=== PATIENT | male | born 1965 | race African-American/Black ===

== ENCOUNTER 2017-10-10 04:37 | Inpatient (IN) | payer MEDICAID ==
[~2017-10-10] VITALS: Ht 180.3 cm; Wt 86.2 kg
[2017-10-10] VITALS (11 sets, daily range): BP systolic 113–140; BP diastolic 64–92
[~2017-10-10 04:37] MED LIST: DEPAKOTE500 MG PO; DILANTIN100 MG ORAL; DILANTIN30 MG ORAL; KEPPRA500 MG ORAL; PHENOBARBITAL60 MG ORAL; PHENYTOIN100 MG/4 M ORAL; Phenobarbital ORAL; VIMPAT100 MG ORAL
[2017-10-10] MEDS ORDERED: Sodium Chloride 500ML 500 ML IV ONE (04:54)
[2017-10-10] MEDS ORDERED: LORazepam Inj 2mg/ml 1ml ONE (04:54)
[2017-10-10] MEDS ORDERED: LORazepam Inj 2mg/ml 1ml IM ONE ×2 (05:00→06:00)
--- NOTE | 2017-10-10 05:11 | Emergency Room Report ---
History of Present Illness General Chief Complaint: Seizure Source: Patient, Significant Other, EMS (Sluaiman Ramos MD) Present Illness HPI 51-year-old male presents ED status post seizure. Occurred at home. Witnessed by significant other. No head trauma. History of seizurestakes Ru Raymond Depakote. Significant other states that patient does drink. States he is otherwise compliant with his medications. No drug use. Patient is currently post ictal. Unable to provide any additional history at this time. No other aggravating relieving factors. No other associated symptoms (Sulaiman Ramos MD) Allergies: Coded Allergies: NO KNOWN ALLERGIES (Unverified Allergy, Unknown, 02/14/15) Patient History Past Medical History: seizures Past Surgical History: none Pertinent Family History: none Social History: Reports: alcohol use; Denies: smoking, drug use Immunizations: UTD Reviewed Nursing Documentation: PMH: Agreed; PSxH: Agreed (Sulaiman Ramos MD) Nursing Documentation-PMH Past Medical History: No History, Except For Hx Cardiac Problems: No Hx Hypertension: No Hx Pacemaker: No Hx Asthma: No Hx COPD: No Hx Diabetes: No Hx Cancer: No Hx Gastrointestinal Problems: No Hx Dialysis: No Hx Neurological Problems: Yes Hx Cerebrovascular Accident: No Hx Seizures: Yes Hx Syncope: Yes (Sulaiman Ramos MD) Review of Systems All Other Systems: negative except mentioned in HPI (Sulaiman Ramos MD) Physical Exam Vital Signs Date Time Temp Pulse Resp B/P (MAP) Pulse Ox O2 Delivery O2 Flow Rate FiO2 10/10/17 04:30 98.6 80 18 158/74 98 Room Air 98.6 Sp02 EP Interpretation: reviewed, normal General Appearance: no apparent distress, Postictal Head: normocephalic Eyes: bilateral eye normal inspection, bilateral eye PERRL ENT: normal ENT inspection Neck: normal inspection Respiratory: chest non-tender, lungs clear, normal breath sounds, speaking full sentences Cardiovascular #1: regular rate, rhythm, no edema Gastrointestinal: normal inspection Rectal: deferred Genitourinary: no CVA tenderness Musculoskeletal: normal inspection Neurologic: regional driver III-XII nml as tested, motor strength/tone normal, other - postictal Psychiatric: other - postictal Skin: normal inspection Lymphatic: normal inspection (Sulaiman Ramos MD) Medical Decision Making Diagnostic Impression: Primary Impression: Seizure disorder ER Course This patient had been seen by Dr. Ramos. Please see his full history and physical. Basically, the patient has a history of epilepsy and seizure disorder. He has a history of status epilepticus. He presents with breakthrough seizures today with prolonged altered mental status and postictal state. Of note, he did get 4 mg of IM Ativan. Apparently he was very combative and aggressive after the seizure. Apparently this is standard for him. The patient had a prolonged stay in emergency department and continued to be sedated and altered. Therefore, I felt that this patient should be admitted for further monitoring and further evaluation until he clears his mental status. Laboratory Tests Test 10/10/17 06:50 White Blood Count 6.4 K/UL (4.8-10.8) Red Blood Count 5.08 M/UL (4.70-6.10) Hemoglobin 14.9 G/DL (14.2-18.0) Hematocrit 43.4 % (42.0-52.0) Mean Corpuscular Volume 85 FL (80-99) Mean Corpuscular Hemoglobin 29.4 PG (27.0-31.0) Mean Corpuscular Hemoglobin Concent 34.4 G/DL (32.0-36.0) Red Cell Distribution Width 11.2 % (11.6-14.8) L Platelet Count 111 K/UL (150-450) L Mean Platelet Volume 9.3 FL (6.5-10.1) Neutrophils (%) (Auto) 72.2 % (45.0-75.0) Lymphocytes (%) (Auto) 20.4 % (20.0-45.0) Monocytes (%) (Auto) 5.2 % (1.0-10.0) Eosinophils (%) (Auto) 0.5 % (0.0-3.0) Basophils (%) (Auto) 1.7 % (0.0-2.0) Sodium Level 133 MMOL/L (136-145) L Potassium Level 3.8 MMOL/L (3.5-5.1) Chloride Level 98 MMOL/L (98-107) Carbon Dioxide Level 26 MMOL/L (21-32) Anion Gap 9 mmol/L (5-15) Blood Urea Nitrogen 6 mg/dL (7-18) L Creatinine 1.0 MG/DL (0.55-1.30) Estimate Glomerular Filtration Rate > 60 mL/min (>60) Glucose Level 97 MG/DL (74-106) Calcium Level 8.2 MG/DL (8.5-10.1) L Total Bilirubin 0.3 MG/DL (0.2-1.0) Aspartate Amino Transferase (AST) 36 U/L (15-37) Alanine Aminotransferase (ALT) 51 U/L (12-78) Alkaline Phosphatase 62 U/L (46-116) Total Protein 7.0 G/DL (6.4-8.2) Albumin 3.5 G/DL (3.4-5.0) Globulin 3.5 g/dL Albumin/Globulin Ratio 1.0 (1.0-2.7) Urine Opiates Screen Negative (NEGATIVE) Urine Barbiturates Screen Negative (NEGATIVE) Phenytoin (Dilantin) Level 12.7 ug/mL (10-20) Valproic Acid Level 58 MCG/ML (50-100) Phencyclidine (PCP) Screen Negative (NEGATIVE) Urine Amphetamines Screen Negative (NEGATIVE) Urine Benzodiazepines Screen Negative (NEGATIVE) Urine Cocaine Screen Negative (NEGATIVE) Urine Marijuana (THC) Screen Positive (NEGATIVE) H Serum Alcohol < 3 mg/dL (Kimmy Romero DO) Last Vital Signs Date Time Temp Pulse Resp B/P (MAP) Pulse Ox O2 Delivery O2 Flow Rate FiO2 10/10/17 04:30 98.6 80 18 158/74 98 Room Air 98.6 (Sulaiman Ramos MD) Referrals: NON PHYSICIAN (PCP) Sulaiman Ramos MD Oct 10, 2017 05:11 Kimmy Romero Livier CRUZ Oct 10, 2017 07:42
[2017-10-10] MEDS ORDERED: levETIRAcetam 500mg/NS100ml 100 ML IVPB ONE ×2 (06:30→10:32)
[2017-10-10 07:10] LABS: BASOPHILS % (AUTO) 1.7 % (0.0-2.0); EOSINOPHILS % (AUTO) 0.5 % (0.0-3.0); HEMATOCRIT 43.4 % (42.0-52.0); HEMOGLOBIN 14.9 G/DL (14.2-18.0); LYMPHOCYTES % (AUTO) 20.4 % (20.0-45.0); MEAN CORPUSCULAR VOLUME 85 FL (80-99); MONOCYTES % (AUTO) 5.2 % (1.0-10.0); NEUTROPHILS % (AUTO) 72.2 % (45.0-75.0); PLATELET COUNT 111 K/UL (150-450); RED BLOOD COUNT 5.08 M/UL (4.70-6.10); RED CELL DISTRIBUTION WIDTH 11.2 % (11.6-14.8); WHITE BLOOD COUNT 6.4 K/UL (4.8-10.8)
[2017-10-10 07:34] LABS: ANION GAP 9 mmol/L (5-15); BLOOD UREA NITROGEN 6 mg/dL (7-18); CALCIUM 8.2 MG/DL (8.5-10.1); CARBON DIOXIDE 26 MMOL/L (21-32); CHLORIDE 98 MMOL/L (98-107); POTASSIUM 3.8 MMOL/L (3.5-5.1); SODIUM 133 MMOL/L (136-145)
[2017-10-10 07:38] LABS: ALANINE AMINOTRANSFERASE 51 U/L (12-78); ALBUMIN 3.5 G/DL (3.4-5.0); ALKALINE PHOSPHATASE 62 U/L (46-116); ASPARTATE AMINO TRANSFERASE 36 U/L (15-37); BILIRUBIN,TOTAL 0.3 MG/DL (0.2-1.0)
[2017-10-10] MEDS ORDERED: Heparin 2000 units/Ns 1000ml INJ ONE (09:00)
[2017-10-10] MEDS ORDERED: Lidocaine 1% Plain 30 ml INJ ONE (09:00)
--- NOTE | 2017-10-10 10:29 | Pre-Procedure Note/Attestation ---
Pre-Procedure Note/Attestation Complete Prior to Procedure Planned Procedure: not applicable Procedure Narrative: PICC line Indications for Procedure Pre-Operative Diagnosis: need IV access Attestation Informed consent obtained prior to the procedure. This was confirmed prior to beginning the procedure. I attest that I re-evaluated the patient just prior to the surgery and that there has been no change in the patient's H&P, except as documented below: Ramirez Washington M.D. Oct 10, 2017 10:29
[2017-10-10] MEDS ORDERED: Sodium Chloride 500ML 550 ML ONE (10:33)
--- NOTE | 2017-10-10 10:36 | Diagnostic Imaging Report ---
Indications: Needs IV access Technique: Ultrasound confirms patent compressible brachial vein. Total sterile technique, including sterile probe cover and sterile gel, hat, mask,, sterile gown, large sterile drape, and preparation with 2% chlorhexidine utilized. Local anesthesia with 1% lidocaine. Under real-time ultrasound guidance, puncture the brachial vein using 21-gauge needle, documented and archived, passage 0.018 guidewire under direct fluoroscopy, which was used to determine appropriate catheter length, exchange for 5 [place] peel-away sheath. 5 [place] dual-lumen power PICC cut to 40 cm. It was inserted through the peel-away sheath. Peel-away sheath and guidewire removed. Catheter fixed to the skin. Both catheter ports aspirated and flushed. Patient tolerated procedure well, without immediate complication. Digital radiograph documents satisfactory catheter tip position, at the cavoatrial junction. Total fluoroscopy time 0.2 minutes. Total dose area product 17 dGycm2 Impression: Successful placement of 5 [place] double-lumen PICC under sonographic and fluoroscopic guidance, as described above.
[2017-10-10] MEDS ORDERED: Mylanta II UD 30ml ORAL PRN (12:00)
[2017-10-10] MEDS ORDERED: LORazepam Inj 2mg/ml 1ml IV PRN (12:00)
[2017-10-10] MEDS ORDERED: Morphine Sulfate 2mg/ml Inj IVP PRN (12:00)
[2017-10-10] MEDS ORDERED: Miralax 17gm pkt ORAL PRN (12:00)
--- NOTE | 2017-10-10 12:12 | Consultation ---
History of Present Illness General Chief Complaint: Seizure Present Illness Allergies: Coded Allergies: NO KNOWN ALLERGIES (Unverified Allergy, Unknown, 02/14/15) Medication History Scheduled Divalproex Sodium (Depakote), 500 MG PO BID, (Reported) Levetiracetam (Keppra), 1,500 MG ORAL BID, (Reported) Phenytoin (Phenytoin*), 100 MG ORAL EVERY 8 HOURS Patient History Healthcare decision maker Resuscitation status Advanced Directive on File Physical Exam Last 24 Hour Vital Signs Date Time Temp Pulse Resp B/P (MAP) Pulse Ox O2 Delivery O2 Flow Rate FiO2 10/10/17 11:24 64 15 113/70 99 Simple Mask 2.0 10/10/17 10:23 61 16 124/80 99 Simple Mask 2.0 10/10/17 08:30 64 15 140/74 99 Simple Mask 2.0 10/10/17 07:30 66 18 Simple Mask 2.0 10/10/17 07:30 66 18 123/72 99 Simple Mask 2.0 10/10/17 06:45 98.6 67 16 126/76 99 Room Air 98.6 10/10/17 05:45 98.6 68 16 125/76 98 Room Air 98.6 10/10/17 04:45 98.6 88 18 135/70 98 Room Air 98.6 10/10/17 04:45 88 18 Room Air 10/10/17 04:30 98.6 80 18 158/74 98 Room Air 98.6 Intake and Output 10/09/17 10/10/17 19:00 07:00 Output Total 100 ml Balance -100 ml Output Urine Total 100 ml Laboratory Tests Test 10/10/17 06:50 White Blood Count 6.4 K/UL (4.8-10.8) Red Blood Count 5.08 M/UL (4.70-6.10) Hemoglobin 14.9 G/DL (14.2-18.0) Hematocrit 43.4 % (42.0-52.0) Mean Corpuscular Volume 85 FL (80-99) Mean Corpuscular Hemoglobin 29.4 PG (27.0-31.0) Mean Corpuscular Hemoglobin Concent 34.4 G/DL (32.0-36.0) Red Cell Distribution Width 11.2 % (11.6-14.8) L Platelet Count 111 K/UL (150-450) L Mean Platelet Volume 9.3 FL (6.5-10.1) Neutrophils (%) (Auto) 72.2 % (45.0-75.0) Lymphocytes (%) (Auto) 20.4 % (20.0-45.0) Monocytes (%) (Auto) 5.2 % (1.0-10.0) Eosinophils (%) (Auto) 0.5 % (0.0-3.0) Basophils (%) (Auto) 1.7 % (0.0-2.0) Sodium Level 133 MMOL/L (136-145) L Potassium Level 3.8 MMOL/L (3.5-5.1) Chloride Level 98 MMOL/L (98-107) Carbon Dioxide Level 26 MMOL/L (21-32) Anion Gap 9 mmol/L (5-15) Blood Urea Nitrogen 6 mg/dL (7-18) L Creatinine 1.0 MG/DL (0.55-1.30) Estimat Glomerular Filtration Rate > 60 mL/min (>60) Glucose Level 97 MG/DL (74-106) Calcium Level 8.2 MG/DL (8.5-10.1) L Total Bilirubin 0.3 MG/DL (0.2-1.0) Aspartate Amino Transf (AST/SGOT) 36 U/L (15-37) Alanine Aminotransferase (ALT/SGPT) 51 U/L (12-78) Alkaline Phosphatase 62 U/L (46-116) Total Protein 7.0 G/DL (6.4-8.2) Albumin 3.5 G/DL (3.4-5.0) Globulin 3.5 g/dL Albumin/Globulin Ratio 1.0 (1.0-2.7) Urine Opiates Screen Negative (NEGATIVE) Urine Barbiturates Screen Negative (NEGATIVE) Phenytoin (Dilantin) Level 12.7 ug/mL (10-20) Valproic Acid (Depakene) Level 58 MCG/ML (50-100) Phencyclidine (PCP) Screen Negative (NEGATIVE) Urine Amphetamines Screen Negative (NEGATIVE) Urine Benzodiazepines Screen Negative (NEGATIVE) Urine Cocaine Screen Negative (NEGATIVE) Urine Marijuana (THC) Screen Positive (NEGATIVE) H Serum Alcohol < 3 mg/dL Height (Feet): 5 Height (Inches): 11.00 Weight (Pounds): 190 Medications Current Medications Medications (Trade) Dose Ordered Sig/Cristian Route PRN Reason Start Time Stop Time Status Last Admin Dose Admin Acetaminophen (Tylenol) 650 mg Q4H PRN ORAL fever 10/10/17 12:00 11/09/17 11:59 UNV Al Hydroxide/Mg Hydroxide (Mylanta II) 30 ml Q6H PRN ORAL dyspepsia 10/10/17 12:00 11/09/17 11:59 UNV Chlorhexidine Gluconate (Lizzy-Hex 2%) 1 applic DAILY@2000 TOPIC 10/10/17 20:00 11/09/17 19:59 Dextrose (Dextrose 50%) STAT PRN IV Hypoglycemia 10/10/17 12:00 11/09/17 11:59 UNV Divalproex Sodium (Depakote) 500 mg BID ORAL 10/10/17 18:00 11/09/17 17:59 UNV Heparin Sodium (Porcine) (Heparin 5000 units/ml) 5,000 units EVERY 12 HOURS SUBQ 10/10/17 21:00 11/09/17 20:59 UNV Levetiracetam (Keppra) 1,500 mg BID ORAL 10/10/17 18:00 11/09/17 17:59 UNV Lorazepam (Ativan 2mg/ml 1ml) 2 mg EVERY HOUR PRN IV seizures 10/10/17 12:00 10/17/17 11:59 UNV Morphine Sulfate (Morphine Sulfate) 1 mg EVERY 4 HOURS PRN IVP For Pain 10/10/17 12:00 10/17/17 11:59 UNV Ondansetron HCl (Zofran) 4 mg Q6H PRN IVP Nausea & Vomiting 10/10/17 12:00 11/09/17 11:59 UNV Phenytoin (Dilantin) 100 mg EVERY 8 HOURS ORAL 10/10/17 14:00 11/09/17 13:59 UNV Polyethylene Glycol (Miralax) 17 gm HSPRN PRN ORAL Constipation 10/10/17 12:00 11/09/17 11:59 UNV Zolpidem Tartrate (Ambien) 5 mg HSPRN PRN ORAL Insomnia 10/10/17 12:00 10/17/17 11:59 UNV Jessica Sandoval MD Oct 10, 2017 12:12
[2017-10-10] MEDS: Phenytoin 100mg cap ORAL SCH ×2 (15:16→22:34)
[2017-10-10] MEDS ORDERED: Dyna-Hex 2% Top Sol 2oz TOPIC SCH ×2 (20:00)
[2017-10-10] MEDS ORDERED: Zolpidem 5mg tab ORAL PRN (20:00)
[2017-10-10] MEDS: Heparin 5000 units/ml inj SUBQ SCH (20:45)
[2017-10-10] MEDS: Depakote 500mg tab ORAL SCH (20:46)
[2017-10-11] VITALS: BP 125/81
[2017-10-11 05:06] LABS: BASOPHILS % (AUTO) 1.5 % (0.0-2.0); HEMATOCRIT 43.5 % (42.0-52.0); HEMOGLOBIN 14.7 G/DL (14.2-18.0); LYMPHOCYTES % (AUTO) 27.6 % (20.0-45.0); MEAN CORPUSCULAR VOLUME 87 FL (80-99); MONOCYTES % (AUTO) 7.8 % (1.0-10.0); NEUTROPHILS % (AUTO) 62.2 % (45.0-75.0); PLATELET COUNT 158 K/UL (150-450); RED BLOOD COUNT 5.01 M/UL (4.70-6.10); RED CELL DISTRIBUTION WIDTH 11.4 % (11.6-14.8); WHITE BLOOD COUNT 7.3 K/UL (4.8-10.8)
[2017-10-11] MEDS: Phenytoin 100mg cap ORAL SCH ×2 (05:16→13:35)
[2017-10-11 05:18] VITALS: BP 121/77
[2017-10-11 05:29] LABS: ALANINE AMINOTRANSFERASE 46 U/L (12-78); ALBUMIN 3.3 G/DL (3.4-5.0); ALKALINE PHOSPHATASE 60 U/L (46-116); ANION GAP 7 mmol/L (5-15); ASPARTATE AMINO TRANSFERASE 26 U/L (15-37); BILIRUBIN,TOTAL 0.6 MG/DL (0.2-1.0); BLOOD UREA NITROGEN 6 mg/dL (7-18); CALCIUM 8.2 MG/DL (8.5-10.1); CARBON DIOXIDE 27 MMOL/L (21-32); CHLORIDE 103 MMOL/L (98-107); POTASSIUM 3.5 MMOL/L (3.5-5.1); SODIUM 137 MMOL/L (136-145)
[2017-10-11 08:00] VITALS: BP 143/91
[2017-10-11] MEDS: Depakote 500mg tab ORAL SCH (09:37)
[2017-10-11] MEDS: Heparin 5000 units/ml inj SUBQ SCH (09:43)
--- NOTE | 2017-10-11 11:59 | Pulmonology Progress Note ---
Assessment/Plan Problems: (1) Seizure disorder (2) Altered level of consciousness (3) social ETOH Assessment/Plan no seizures pt wants to go home getting already the max dose of Keppra and Depakote f/u by out-patient neurologist. Subjective ROS Limited/Unobtainable: No Constitutional: Reports: no symptoms HEENT: Repors: no symptoms Respiratory: Reports: no symptoms Allergies: Coded Allergies: NO KNOWN ALLERGIES (Unverified Allergy, Unknown, 02/14/15) Objective Last 24 Hour Vital Signs Date Time Temp Pulse Resp B/P (MAP) Pulse Ox O2 Delivery O2 Flow Rate FiO2 10/11/17 08:00 98.6 75 20 143/91 98 Room Air 98.6 10/11/17 08:00 76 10/11/17 05:18 97.3 69 18 121/77 96 Room Air 97.3 10/11/17 04:00 74 10/11/17 00:00 68 10/11/17 00:00 97.6 68 18 125/81 98 Room Air 97.6 10/10/17 20:00 73 10/10/17 20:00 97.4 63 18 128/64 98 Room Air 97.4 10/10/17 16:00 97.4 66 16 125/80 96 97.4 10/10/17 16:00 65 10/10/17 12:30 97.2 56 15 123/92 100 Simple Mask 2.0 97.2 10/10/17 12:30 97.2 56 16 123/92 (102) 100 Nasal Cannula 2.0 97.2 10/10/17 12:11 98.9 61 16 113/70 99 Simple Mask 2.0 10/10/17 12:00 97.2 56 16 123/92 100 97.2 Intake and Output 10/10/17 10/11/17 19:00 07:00 Intake Total 960 ml 180 ml Output Total 1125 ml Balance 960 ml -945 ml Intake Oral 360 ml 180 ml IV Total 600 ml Output Urine Total 1125 ml # Bowel Movements 1 General Appearance: WD/WN Respiratory/Chest: chest wall non-tender, lungs clear Cardiovascular: normal peripheral pulses, normal rate Abdomen: normal bowel sounds, soft, non tender Genitourinary: normal external genitalia Skin: no rash Neurologic/Psychiatric: subject scientific research II-XII grossly normal Laboratory Tests 10/11/17 04:00: White Blood Count 7.3, Red Blood Count 5.01, Hemoglobin 14.7, Hematocrit 43.5, Mean Corpuscular Volume 87, Mean Corpuscular Hemoglobin 29.3, Mean Corpuscular Hemoglobin Concent 33.8, Red Cell Distribution Width 11.4L, Platelet Count 158, Mean Platelet Volume 7.2, Neutrophils (%) (Auto) 62.2, Lymphocytes (%) (Auto) 27.6, Monocytes (%) (Auto) 7.8, Eosinophils (%) (Auto) 1.0, Basophils (%) (Auto ) 1.5, Sodium Level 137, Potassium Level 3.5, Chloride Level 103, Carbon Dioxide Level 27, Anion Gap 7, Blood Urea Nitrogen 6L, Creatinine 1.0, Estimat Glomerular Filtration Rate > 60, Glucose Level 94, Calcium Level 8.2L, Total Bilirubin 0.6, Aspartate Amino Transf (AST/SGOT) 26, Alanine Aminotransferase ( ALT/SGPT) 46, Alkaline Phosphatase 60, Total Protein 6.5, Albumin 3.3L, Globulin 3.2, Albumin/Globulin Ratio 1.0 Current Medications Medications (Trade) Dose Ordered Sig/Cristian Route PRN Reason Start Time Stop Time Status Last Admin Dose Admin Acetaminophen (Tylenol) 650 mg Q4H PRN ORAL fever (temp>100.5F) 10/10/17 12:00 11/09/17 11:59 Al Hydroxide/Mg Hydroxide (Mylanta II) 30 ml Q6H PRN ORAL dyspepsia 10/10/17 12:00 11/09/17 11:59 Chlorhexidine Gluconate (Lizzy-Hex 2%) 1 applic DAILY@1999 TOPIC 10/10/17 20:00 11/09/17 19:59 10/10/17 20:40 Dextrose (Dextrose 50%) 25 ml STAT PRN IV Hypoglycemia 10/10/17 12:00 11/09/17 11:59 Dextrose (Dextrose 50%) 50 ml STAT PRN IV Hypoglycemia 10/10/17 12:15 11/09/17 12:14 Divalproex Sodium (Depakote) 500 mg Q12HR ORAL 10/10/17 21:00 11/09/17 20:59 10/11/17 09:37 Heparin Sodium (Porcine) (Heparin 5000 units/ml) 5,000 units EVERY 12 HOURS SUBQ 10/10/17 21:00 11/09/17 20:59 10/11/17 09:43 Levetiracetam (Keppra) 1,500 mg Q12HR ORAL 10/10/17 21:00 11/09/17 20:59 10/11/17 09:38 Lorazepam (Ativan 2mg/ml 1ml) 2 mg Q1H PRN IV seizures 10/10/17 12:00 10/17/17 11:59 Morphine Sulfate (Morphine Sulfate) 1 mg Q4H PRN IVP For Pain 10/10/17 12:00 10/17/17 11:59 Ondansetron HCl (Zofran) 4 mg Q6H PRN IVP Nausea & Vomiting 10/10/17 12:00 11/09/17 11:59 Phenytoin (Dilantin) 100 mg EVERY 8 HOURS ORAL 10/10/17 14:00 11/09/17 13:59 10/11/17 05:16 Polyethylene Glycol (Miralax) 17 gm HSPRN PRN ORAL Constipation 10/10/17 12:00 11/09/17 11:59 Zolpidem Tartrate (Ambien) 5 mg HSPRN PRN ORAL Insomnia 10/10/17 20:00 10/17/17 19:59 Jessica Sandoval MD Oct 11, 2017 11:59
[2017-10-11 12:00] VITALS: BP 123/83
--- NOTE | 2017-10-12 08:36 | Discharge Summary ---
Discharge Summary Discharge Summary _ DATE OF ADMISSION: 10/10/2017 DATE OF DISCHARGE: 10/11/2017 REASON FOR ADMISSION: 51 years old male with past medical history significant for seizure disorder , presented to emergency department post seizure. Patient experienced episode of seizure at home , witnessed by significant other. No reported head trauma. Patient at home on Keppra, Dilantin and Depakote. Significant other reported no drug use. Vital signs were stable, pulse oximetry was stable on room air . No leukocytosis, stable hemoglobin and hematocrit . Urine tox screen was positive for marijuana. Serum alcohol level less than 3. Patient admitted with diagnosis of seizure disorder, altered level of consciousness. social ETOH. CONSULTANTS: pulmonary/hospitalist Dr. Sandoval [facility]RSE: Patient admitted. Seizure precautions were maintained. Antiseizure medications resumed. Reinforced compliance with medication regimen. Ativan was on standby as needed for breakthrough seizure. No further seizure while in the hospital. Patient had the outpatient neurologist , that he follows. Reinforced importance of regular follow-up with neurologist. Triggers for seizure were reviewed with patient. DVT prophylaxis provided. Supportive care provided. Patient was stable for discharge home. Due to rapid and unexpected improvement in patient condition, patient was discharged in one day. FINAL DIAGNOSES: Seizure disorder Altered level of consciousness( due to [id number] state), resolgved Social EtOH DISCHARGE MEDICATIONS: See Medication Reconciliation list. DISCHARGE INSTRUCTIONS: Patient was discharged home. Patient to follow-up with outpatient neurologist this week. I have been assigned to dictate discharge summary for this account. I was not involved in the patient's management. Angelia Koenig NP Oct 12, 2017 08:36
== END 2017-10-11 14:03 | disposition home or self-care (01) | DRG 53 ==
LOC: EDBD 04:37 → EMR 05:07 → EDBEDREQ 09:05 → 2E 10:05 → EDBEDREQ 11:01
PROC: 02HV33Z Insertion of Infusion Device into Superior Vena Cava, Percutaneous Approach (ICD-10-PCS; principal; 2017-10-10)
DX: G40.909 Epilepsy, unspecified, not intractable, without status epilepticus (principal); R41.82 Altered mental status, unspecified
CPT/HCPCS: 36415; 36569; 76937; 80053; 80164; 80185; 80299; 80307; 80329; 85025; 99285